=== PATIENT | male | born 1995 | race Two or more races ===

== ENCOUNTER 2022-10-23 16:29 | Emergency (ER) | payer SELFPAY ==
[~2022-10-23] VITALS: Ht 167.6 cm; Wt 113.4 kg
--- NOTE | 2022-10-23 16:51 | NUR ---
Urinal at bedside for urine sample.
--- NOTE | 2022-10-23 18:05 | NUR ---
Patient is resting comfortably on gurney with eyes closed, respiration:easy, even, non-labored, and symmetrical, he is moving all 4 extremities, head of gurney elevated, maintained on coninuous SpO2 monitor, minmally verbal at this time, NAD.
--- NOTE | 2022-10-23 19:16 | NUR ---
Patient is for soberiety. Nursing SBAR given to WILBUR Parker.
--- NOTE | 2022-10-23 19:17 | NUR ---
Patient resting in bed, no s/s of any distress noted at this time, will continue to monitor.
--- NOTE | 2022-10-23 20:34 | NUR ---
Patient awake giving urie at this time.
[2022-10-23 21:03] LABS: *AMPHETAMINE, URINE POSITIVE (NEGATIVE); *CANNABINOID, URINE NEGATIVE (NEGATIVE); *COCCAINE, URINE NEGATIVE (NEGATIVE); *PHENCYCLIDINE SCREEN,URINE POSITIVE (NEGATIVE)
--- NOTE | 2022-10-23 22:04 | NUR ---
Patient continues to rest without c/o, no s/s of any distress noted at this time.
--- NOTE | 2022-10-24 00:51 | NUR ---
Patient continues to sleep without any c/o.
--- NOTE | 2022-10-24 04:52 | NUR ---
PATIENT SLEEPING, NO S/S OF ANY DISTRESS NOTED AT THIS TIME.
[2022-10-24 06:22] VITALS: BP 108/76
== END 2022-10-24 06:23 | disposition home or self-care (01) ==
LOC: ER 16:29
DX: F10.129 Alcohol abuse with intoxication, unspecified (principal); Y90.6 Blood alcohol level of 120-199 mg/100 ml
CPT/HCPCS: 36415; A4663; G0480